=== PATIENT | female | born 1990 | race Caucasian/White ===

== ENCOUNTER 2018-04-09 11:33 | Outpatient (CLI) | payer OTHER ==
[2018-04-09 12:35] LABS: BASOPHILS # (AUTO) 0.1 K/uL (0.00-0.22); EOSINOPHILS # (AUTO) 0.2 K/uL (0-0.4); EOSINOPHILS % (AUTO) 1.9 % (0.0-4.0); HEMOGLOBIN 13.4 g/dL (12.0-16.0); LYMPHOCYTES # (AUTO) 2.3 K/uL (2.5-16.5); LYMPHOCYTES % (AUTO) 18.7 % (20.5-51.1); MEAN CORPUSCULAR HEMOGLOBIN 26 pg (27-31); MEAN CORPUSCULAR HGB CONC 33 g/dL (33-37); MEAN CORPUSCULAR VOLUME 78.6 fL (80-94); MONOCYTES # (AUTO) 0.3 K/uL (0.8-1.0); MONOCYTES % (AUTO) 2.8 % (1.7-9.3); NEUTROPHILS # (AUTO) 9.5 K/uL (1.8-7.7); NEUTROPHILS % (AUTO) 75.6 % (42.2-75.2); PLATELET COUNT (AUTO) 319 K/uL (140-450); RED BLOOD CELL COUNT(AUTO) 5.22 MIL/uL (4.20-5.40); RED CELL DISTRIBUTION WIDTH 14.6 % (11.6-13.7); WHITE BLOOD COUNT (AUTO) 12.5 K/uL (4.8-10.8)
[2018-04-09 12:59] LABS: ALBUMIN 3.7 g/dL (3.4-5.0); ANION GAP 10.8 (8-16); CARBON DIOXIDE 27.5 mmol/L (21-32); CHOL/HDL RATIO 4.3 (1-4.5); CREATININE 0.7 mg/dL (0.6-1.3); POTASSIUM 3.3 mmol/L (3.5-5.1); THYROID STIMULATING HORMONE 2.73 uIU/mL (0.34-3.74); TOTAL BILIRUBIN 0.3 mg/dL (0.0-1.0)
[2018-04-10 09:07] LABS: T4 (THYROXINE) 7.7 ug/dL (4.5-12.0)
== END 2018-04-09 20:17 | disposition home or self-care (01) ==
LOC: MLB 11:33 → EEVIPCON 11:33 → MLB 20:17
PROVIDERS: ATTEND Student in an Organized Health Care Education/Training Program
DX: Z00.01 Encounter for general adult medical examination with abnormal findings (principal); N83.201 Unspecified ovarian cyst, right side
CPT/HCPCS: 36415; 76830; 80053; 82306; 82607; 82672; 82746; 83036; 84144; 84436; 84443; 85025

== ENCOUNTER 2018-12-23 13:52 | Outpatient (CLI) | payer OTHER ==
[2018-12-23 14:59] LABS: BASOPHILS # (AUTO) 0.1 K/uL (0.00-0.22); EOSINOPHILS # (AUTO) 0.2 K/uL (0-0.4); EOSINOPHILS % (AUTO) 2.5 % (0.0-4.0); HEMATOCRIT 42.2 % (36-48); HEMOGLOBIN 13.7 g/dL (12.0-16.0); LYMPHOCYTES % (AUTO) 26.8 % (20.5-51.1); MEAN CORPUSCULAR HEMOGLOBIN 25 pg (27-31); MEAN CORPUSCULAR HGB CONC 33 g/dL (33-37); MEAN CORPUSCULAR VOLUME 76.6 fL (80-94); MONOCYTES # (AUTO) 0.3 K/uL (0.8-1.0); MONOCYTES % (AUTO) 4.6 % (1.7-9.3); NEUTROPHILS # (AUTO) 4.9 K/uL (1.8-7.7); NEUTROPHILS % (AUTO) 65.1 % (42.2-75.2); PLATELET COUNT (AUTO) 293 K/uL (140-450); RED BLOOD CELL COUNT(AUTO) 5.51 MIL/uL (4.20-5.40); RED CELL DISTRIBUTION WIDTH 16.1 % (11.6-13.7); WHITE BLOOD COUNT (AUTO) 7.5 K/uL (4.8-10.8)
[2018-12-23 15:35] LABS: ALBUMIN 3.8 g/dL (3.4-5.0); ANION GAP 8.2 (8-16); CHOL/HDL RATIO 5.1 (1-4.5); CREATININE 0.7 mg/dL (0.6-1.3); FREE T4 (FREE THYROXINE) 0.95 ng/dL (0.76-1.46); POTASSIUM 3.2 mmol/L (3.5-5.1); THYROID STIMULATING HORMONE 1.96 uIU/mL (0.34-3.74); TOTAL BILIRUBIN 0.6 mg/dL (0.0-1.0)
[2018-12-23 19:32] LABS: APPEARANCE,URINE CLEAR (CLEAR); BILIRUBIN,URINE NEGATIVE (NEGATIVE); BLOOD, URINE NEGATIVE (NEGATIVE); COLOR,URINE YELLOW (YELLOW); LEUKOCYTE ESTERASE ,URINE NEGATIVE (NEGATIVE); NITRITE, URINE NEGATIVE (NEGATIVE); UGLUCOSE NEGATIVE (NEGATIVE)
[2018-12-24 09:11] LABS: HEPATITIS B SURFACE ANTIBODY Reactive (.); HEPATITIS B SURFACE ANTIGEN Negative (Negative); HEPATITIS C VIRUS ANTIBODY <0.1 s/co ratio (0.0-0.9); TRIIODOTHYRONINE 107 ng/dL (71-180)
[2018-12-24 12:19] LABS: MICROALBUMIN, UR RANDOM 3.3 ug/mL (Not Estab.)
== END 2018-12-23 21:05 | disposition home or self-care (01) ==
LOC: MLB 13:52
PROVIDERS: ATTEND Preventive Medicine Preventive Medicine/Occupational Environmental Medicine
DX: Z00.00 Encounter for general adult medical examination without abnormal findings (principal); Z11.3 Encounter for screening for infections with a predominantly sexual mode of transmission; E28.2 Polycystic ovarian syndrome; N83.02 Follicular cyst of left ovary; N83.01 Follicular cyst of right ovary; R03.0 Elevated blood-pressure reading, without diagnosis of hypertension; R80.9 Proteinuria, unspecified; E66.9 Obesity, unspecified; E03.9 Hypothyroidism, unspecified
CPT/HCPCS: 36415; 76830; 76856; 80053; 81003; 82043; 82306; 83036; 84439; 84443; 84480; 85025; 86592; 86702; 86706; 86803; 87340

== ENCOUNTER 2019-07-13 11:08 | Outpatient (CLI) | payer OTHER ==
[2019-07-13 13:06] LABS: ALBUMIN 3.9 g/dL (3.4-5.0); ANION GAP 13.2 (8-16); CARBON DIOXIDE 26.5 mmol/L (21-32); CHOL/HDL RATIO 4.9 (1-4.5); CREATININE 0.8 mg/dL (0.6-1.3); FREE T4 (FREE THYROXINE) 1.03 ng/dL (0.76-1.46); POTASSIUM 3.7 mmol/L (3.5-5.1); TOTAL BILIRUBIN 0.5 mg/dL (0.0-1.0)
== END 2019-07-13 20:13 | disposition home or self-care (01) ==
LOC: MLB 11:08
PROVIDERS: ATTEND Preventive Medicine Preventive Medicine/Occupational Environmental Medicine
DX: E03.9 Hypothyroidism, unspecified (principal); E78.5 Hyperlipidemia, unspecified; I10 Essential (primary) hypertension; R73.09 Other abnormal glucose; E87.6 Hypokalemia; E66.9 Obesity, unspecified; E55.9 Vitamin D deficiency, unspecified
CPT/HCPCS: 36415; 80053; 82306; 83036; 84439; 84480

== ENCOUNTER 2019-12-01 10:14 | Outpatient (CLI) | payer OTHER ==
[2019-12-01 11:11] LABS: BASOPHILS # (AUTO) 0.1 K/uL (0.00-0.22); BASOPHILS % (AUTO) 1.1 % (0.0-2.0); EOSINOPHILS # (AUTO) 0.2 K/uL (0-0.4); EOSINOPHILS % (AUTO) 2.3 % (0.0-4.0); HEMATOCRIT 41.3 % (36-48); HEMOGLOBIN 13.3 g/dL (12.0-16.0); LYMPHOCYTES # (AUTO) 1.4 K/uL (2.5-16.5); LYMPHOCYTES % (AUTO) 20.5 % (20.5-51.1); MEAN CORPUSCULAR HEMOGLOBIN 25 pg (27-31); MEAN CORPUSCULAR HGB CONC 32 g/dL (33-37); MONOCYTES # (AUTO) 0.6 K/uL (0.8-1.0); MONOCYTES % (AUTO) 8.9 % (1.7-9.3); NEUTROPHILS # (AUTO) 4.5 K/uL (1.8-7.7); NEUTROPHILS % (AUTO) 67.2 % (42.2-75.2); PLATELET COUNT (AUTO) 268 K/uL (140-450); RED BLOOD CELL COUNT(AUTO) 5.23 MIL/uL (4.20-5.40); RED CELL DISTRIBUTION WIDTH 15.7 % (11.6-13.7); WHITE BLOOD COUNT (AUTO) 6.6 K/uL (4.8-10.8)
[2019-12-01 11:59] LABS: CHOL/HDL RATIO 4.8 (1-4.5); THYROID STIMULATING HORMONE 2.58 uIU/mL (0.34-3.74)
[2019-12-01 13:49] LABS: APPEARANCE,URINE CLEAR (CLEAR); BILIRUBIN,URINE NEGATIVE (NEGATIVE); BLOOD, URINE TRACE-I (NEGATIVE); COLOR,URINE YELLOW (YELLOW); LEUKOCYTE ESTERASE ,URINE TRACE (NEGATIVE); NITRITE, URINE NEGATIVE (NEGATIVE); UGLUCOSE NEGATIVE (NEGATIVE)
[2019-12-01 13:57] LABS: RBC,URINE 0-5 /HPF (0-5); WBC,URINE 0-5 /HPF (0-5)
[2019-12-01 14:00] LABS: ALBUMIN 3.8 g/dL (3.4-5.0); ANION GAP 18.3 (8-16); CARBON DIOXIDE 22.6 mmol/L (21-32); CREATININE 0.7 mg/dL (0.6-1.3); POTASSIUM 3.9 mmol/L (3.5-5.1); TOTAL BILIRUBIN 0.3 mg/dL (0.0-1.0)
[2019-12-02 08:07] LABS: TRIIODOTHYRONINE FREE 2.4 pg/mL (2.0-4.4)
== END 2019-12-01 20:01 | disposition home or self-care (01) ==
LOC: MLB 10:14
DX: E78.5 Hyperlipidemia, unspecified (principal); E55.9 Vitamin D deficiency, unspecified; E66.9 Obesity, unspecified; I10 Essential (primary) hypertension
CPT/HCPCS: 36415; 80053; 81001; 82306; 82670; 83001; 83036; 84439; 84443; 84481; 85025

== ENCOUNTER 2020-10-06 09:56 | Outpatient (CLI) | payer OTHER ==
[2020-10-06 10:34] LABS: BILIRUBIN,URINE NEGATIVE (NEGATIVE); BLOOD, URINE TRACE-I (NEGATIVE); COLOR,URINE YELLOW (YELLOW); LEUKOCYTE ESTERASE ,URINE NEGATIVE (NEGATIVE); NITRITE, URINE NEGATIVE (NEGATIVE); UGLUCOSE NEGATIVE (NEGATIVE)
[2020-10-06 10:41] LABS: RBC,URINE 0-5 /HPF (0-5); WBC,URINE 0-5 /HPF (0-5)
[2020-10-06 10:42] LABS: APPEARANCE,URINE SLIGHTLY HAZY (CLEAR)
[2020-10-06 10:45] LABS: BASOPHILS # (AUTO) 0.1 K/uL (0.00-0.22); BASOPHILS % (AUTO) 0.6 % (0.0-2.0); EOSINOPHILS # (AUTO) 0.2 K/uL (0-0.4); EOSINOPHILS % (AUTO) 1.6 % (0.0-4.0); HEMATOCRIT 38.3 % (36-48); HEMOGLOBIN 12.4 g/dL (12.0-16.0); LYMPHOCYTES # (AUTO) 2.4 K/uL (2.5-16.5); MEAN CORPUSCULAR HEMOGLOBIN 25 pg (27-31); MEAN CORPUSCULAR HGB CONC 32 g/dL (33-37); MEAN CORPUSCULAR VOLUME 77.6 fL (80-94); MONOCYTES # (AUTO) 0.5 K/uL (0.8-1.0); MONOCYTES % (AUTO) 4.3 % (1.7-9.3); NEUTROPHILS # (AUTO) 8.7 K/uL (1.8-7.7); NEUTROPHILS % (AUTO) 73.5 % (42.2-75.2); PLATELET COUNT (AUTO) 336 K/uL (140-450); RED BLOOD CELL COUNT(AUTO) 4.94 MIL/uL (4.20-5.40); WHITE BLOOD COUNT (AUTO) 11.8 K/uL (4.8-10.8)
[2020-10-06 10:48] LABS: CHOL/HDL RATIO 4.9 (1-4.5); PHOSPHORUS 2.4 mg/dL (2.5-4.9)
[2020-10-07 08:09] LABS: T4 FREE (DIRECT) 1.04 ng/dL (0.82-1.77)
== END 2020-10-06 19:33 | disposition home or self-care (01) ==
LOC: MLB 09:56
PROVIDERS: ATTEND Preventive Medicine Preventive Medicine/Occupational Environmental Medicine
DX: Z00.00 Encounter for general adult medical examination without abnormal findings (principal); E03.9 Hypothyroidism, unspecified; E55.9 Vitamin D deficiency, unspecified; E78.5 Hyperlipidemia, unspecified; I10 Essential (primary) hypertension
CPT/HCPCS: 36415; 81001; 83036; 84100; 84439; 84480; 85025